=== PATIENT | male | born 2000 | race African-American/Black ===

== ENCOUNTER 2022-04-06 21:05 | Emergency (ER) | payer OTHER ==
[2022-04-06] MEDS ORDERED: Ibuprofen 200 MG TAB ONE (21:43)
[2022-04-06] MEDS ORDERED: Lidocaine 1% (PF) 30 ML VIAL ONE (22:02)
[2022-04-06] MEDS ORDERED: Bacitracin 1 PK ONE (22:03)
[2022-04-06] MEDS ORDERED: Cephalexin 250 MG CAP ONE (23:10)
== END 2022-04-06 23:49 | disposition home or self-care (01) ==
LOC: NAV ERS 21:05
DX: S62.634B Displaced fracture of distal phalanx of right ring finger, initial encounter for open fracture (principal); S67.194A Crushing injury of right ring finger, initial encounter; W55.22XA Struck by cow, initial encounter; Y99.0 Civilian activity done for income or pay
CPT/HCPCS: 11730; J2001